=== PATIENT | female | born 2005 | race Caucasian/White ===

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

== ENCOUNTER → 2024-09-25 08:41 | Outpatient (BNVA) | payer OTHER, SELFPAY | PROVIDERS: PCP Nurse Practitioner Family; Visit Provider Nurse Practitioner Family | DX: Z13.6 Encounter for screening for cardiovascular disorders (principal); R53.83 Other fatigue; J45.909 Unspecified asthma, uncomplicated | CPT/HCPCS: 80053; 80061; 82306; 82607; 83036; 84439; 84443; 85025 ==

== ENCOUNTER 2024-09-30 14:41 | Outpatient (CLI) | payer OTHER, SELFPAY ==
--- NOTE | 2024-09-30 15:00 | US_ITS ---
WS: [id number] ULTRASOUND RIGHT BREAST HISTORY: Palpable mass RIGHT breast. COMPARISON: None available. TECHNIQUE: 2-D and Doppler. Hypoechoic well-circumscribed mass or masses in the RIGHT breast at 1:00. There are several masses which are inseparable. This may be one single lobulated mass or several separate masses. The entire collection measures 3.8 x 2.3 x 2.3 cm. There is increased vascularity present. No shadowing or through transmission. US/US breast RT limited* [id number] IMPRESSION: BI-RADS: 4- Suspicious Finding - Biopsy Should be Considered FOLLOW-UP: Biopsy Recommended Ultrasound-guided biopsy recommended solid mass RIGHT breast at 1:00. Likely be nign fibroadenoma. Notified MELISSA Vela at 09/30/2024 3:23 PM.
== END 2024-09-30 14:42 | disposition home or self-care (01) ==
LOC: RAD 14:42
PROVIDERS: PCP Nurse Practitioner Family; Visit Provider Nurse Practitioner Family
DX: N63.12 Unspecified lump in the right breast, upper inner quadrant (principal)
CPT/HCPCS: 76642

== ENCOUNTER 2024-10-22 12:29 | Outpatient (CLI) | payer OTHER, SELFPAY ==
--- NOTE | 2024-10-22 13:15 | US_ITS ---
WS: [id number] ULTRASOUND-GUIDED RIGHT BREAST BIOPSY CLINICAL INFORMATION: N63.0 - Unspecified lump in unspecified breast FINDINGS: The procedure including risks, benefits, and complications were discussed with the patient who agreed to proceed. Using sterile technique patient was prepped and draped in the usual sterile fashion. After 1% lidocaine utilizing real-time ultrasound guidance four 14-gauge cores were obtained of the RIGHT breast lesion at the 1:00 o'clock position 3 cm from the nipple. No clip was placed. No immediate complications. US/[place] [id number] IMPRESSION: 1. Uncomplicated ultrasound-guided RIGHT breast biopsy. 2. The pathology demonstrates benign fibroadenoma. Negative for malignancy. DENSITY: The breasts are heterogeneously dense, which may obscure small masses. BI-RADS: 2 - Benign FOLLOW UP: 1 Year Follow-up Recommend 1 year follow-up RIGHT breast ultrasound to confirm stability of the fibroadenoma
== END 2024-10-22 12:30 | disposition home or self-care (01) ==
PROVIDERS: PCP Nurse Practitioner Family; Visit Provider Nurse Practitioner Family
DX: N63.12 Unspecified lump in the right breast, upper inner quadrant (principal); R92.333 Mammographic heterogeneous density, bilateral breasts
CPT/HCPCS: 19083; 88305

== ENCOUNTER → 2024-11-26 14:38 | Outpatient (BNVA) | payer OTHER, SELFPAY | PROVIDERS: PCP Nurse Practitioner Family; Visit Provider Nurse Practitioner Family | DX: R11.2 Nausea with vomiting, unspecified (principal); N39.0 Urinary tract infection, site not specified | CPT/HCPCS: 81000; 81025; 87086 ==

== ENCOUNTER → 2025-01-09 13:30 | Outpatient (BNVA) | payer OTHER, SELFPAY | PROVIDERS: PCP Nurse Practitioner Family; Visit Provider Nurse Practitioner Family | DX: R11.2 Nausea with vomiting, unspecified (principal) | CPT/HCPCS: 81000 ==

== ENCOUNTER → 2025-01-12 11:11 | Outpatient (BNVA) | payer OTHER, SELFPAY | PROVIDERS: PCP Nurse Practitioner Family; Visit Provider Nurse Practitioner Family | DX: Z13.6 Encounter for screening for cardiovascular disorders (principal); E66.9 Obesity, unspecified; R79.89 Other specified abnormal findings of blood chemistry; R11.2 Nausea with vomiting, unspecified | CPT/HCPCS: 80053; 80061; 82306; 82607; 83036; 83690; 84439; 84443; 85025 ==

== ENCOUNTER 2025-01-16 12:43 | Outpatient (CLI) | payer OTHER, SELFPAY ==
--- NOTE | 2025-01-16 12:45 | US_ITS ---
WS: [id number] Complete ABDOMINAL ULTRASOUND HISTORY: R11.0 - Nausea COMPARISON: None available. Liver: 14.1 cm in length. Normal size liver and echogenicity. No bile duct dilatation or mass. Portal Vein: Normal hepatopetal flow with monophasic waveform. Gallbladder: Normally distended gallbladder. Nonshadowing 5 mm nodule along the gallbladder wall consistent with a polyp. CBD: 0.3 cm Pancreas: Normal size and echogenicity. Right kidney: 8.7 cm x 4.4 x 3.7 cm. Cortex:1.1 cm. Liver normal size RIGHT kidney. Mild cortical thinning. No obstruction or mass. Left kidney: 10.8 cm x 5.0 cm x 4.4 cm. Cortex: 1.1 cm. Normal size kidney. Lower pole the LEFT kidney is not very well visualized. No obstruction. Spleen: 10.4 cm. Normal size and echogenicity. Aorta and IVC: Unremarkable abdominal aorta and IVC. US/US abdomen complete* [id number] Impression: 1. Gallbladder polyp, 5 mm. 2. Normal liver. 3. Low normal size RIGHT kidney. 4. Poorly visualized lower pole LEFT kidney. Obscured by bowel gas.
== END 2025-01-16 12:44 | disposition home or self-care (01) ==
LOC: RAD 12:44
PROVIDERS: PCP Nurse Practitioner Family; Visit Provider Nurse Practitioner Family
DX: K82.4 Cholesterolosis of gallbladder (principal); R11.0 Nausea
CPT/HCPCS: 76700

== ENCOUNTER 2025-01-26 09:26 | Outpatient (CLI) | payer OTHER, SELFPAY ==
--- NOTE | 2025-01-26 10:00 | NM_ITS ---
WS: [id number] NUCLEAR MEDICINE HIDA SCAN WITH GALLBLADDER EJECTION FRACTION HISTORY: K82.4 - Cholesterolosis of gallbladder COMPARISON: 01/16/2025 TECHNIQUE: The patient was intravenously injected with 7.9 mCi of TC99m Mebrofenin. Immediate imaging over the right upper quadrant was followed by 5 minute image and additional images for a total of 60 minutes. Normal uptake of radiotracer throughout the liver. Activity identified in the gallbladder at 20 minutes and well distended by 60 minutes. Activity in the proximal small bowel was seen by 20 minutes. Good washout of the radiotracer from the liver by 60 minutes. The patient then drank 8 ounces of Ensure Plus. Ejection fraction at 60 minutes was 63%. Normal GB ejection fraction is 35-75%. Post fatty meal symptoms: None. NM/NM hepatobiliary w phar* [id number] IMPRESSION: 1. Normal HIDA scan. 2. Normal gallbladder ejection fraction.
== END 2025-01-26 09:27 | disposition home or self-care (01) ==
LOC: RAD 09:28
PROVIDERS: PCP Nurse Practitioner Family; Visit Provider Nurse Practitioner Family
DX: R11.0 Nausea (principal); K82.4 Cholesterolosis of gallbladder
CPT/HCPCS: 78227; 86003; 86008; A9537

== ENCOUNTER → 2025-01-27 09:14 | Outpatient (BNVA) | payer OTHER, SELFPAY | PROVIDERS: PCP Nurse Practitioner Family; Visit Provider Nurse Practitioner Family | DX: Z01.89 Encounter for other specified special examinations (principal); R53.83 Other fatigue | CPT/HCPCS: 86618; 86666; 86757 ==

== ENCOUNTER → 2025-03-24 13:05 | Outpatient (BNVA) | payer OTHER, SELFPAY | PROVIDERS: PCP Nurse Practitioner Family; Visit Provider Nurse Practitioner Family | DX: Z91.014 Allergy to mammalian meats (principal) | CPT/HCPCS: 86003; 86008 ==

== ENCOUNTER → 2025-04-20 13:21 | Outpatient (BNVA) | payer OTHER, SELFPAY | PROVIDERS: PCP Nurse Practitioner Family; Visit Provider Nurse Practitioner Family | DX: Z00.00 Encounter for general adult medical examination without abnormal findings (principal); Z13.6 Encounter for screening for cardiovascular disorders | CPT/HCPCS: 83036 ==